=== PATIENT | female | born 1950 | race Two or more races ===

== ENCOUNTER 2024-11-28 07:40 | Day surgery (SDC) | payer OTHER, SELFPAY ==
[2024-11-27 11:15] VITALS: BMI 32.5
[2024-11-28] VITALS (9 sets, daily range): BP systolic 108–171; BP diastolic 74–106; PULSE 66–78; RESP 14–19; TEMP 36.9–37.1; O2SAT 14–99; BMI 32.5
[2024-11-28] MEDS: SODIUM CHLORIDE 0.9% 500 ML 500 ML 20 ML IV (09:39)
[2024-11-28] MEDS: BENZOCAINE 20% (Hurricaine) SPRAY 1 DOSE TOP (09:39)
[2024-11-28] MEDS: MIDAZOLAM INJ 1 MG/ML VIAL 2 ML (ASD USE ONLY) 2 MG IVP (09:39)
[2024-11-28] MEDS: fentaNYL CIT INJ 50 mCg/ML AMP 2ML (ASD USE ONLY) IVP (09:39)
== END 2024-11-28 10:40 | disposition home or self-care (01) ==
PROVIDERS: PCP Family Medicine; Referring Provider Specialist; Visit Provider Specialist
PROC: (CPT 43239; principal; 2024-11-28 09:00)
DX: K22.2 Esophageal obstruction (principal); K20.90 Esophagitis, unspecified without bleeding; K29.50 Unspecified chronic gastritis without bleeding; K31.89 Other diseases of stomach and duodenum
CPT/HCPCS: 43248; 43239; C1769; J1200; J2250; J3010; J7999; A9270